=== PATIENT | female | born 1975 | race Caucasian/White ===

== ENCOUNTER 2021-02-08 14:36 | Outpatient (RCR) | payer BC, SELFPAY ==
--- NOTE | 2021-02-08 15:28 | OTOPEVAL ---
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 She has no trace motion at the DIP. She has stiffness and pain from the immobility. Issued passive ROM HEP to help stretch the tight structures, but had an honest discussion about her therapy prognosis. She verbalized good understanding and states that she would like to continue to complete these exercises on her own and does not wish to follow up with therapy at this time. Thank you for referring Lily Hassan to [facility] [place] Please review, sign, date and return this D/C Summary SIMBA. I agree with and certify that the following plan of care is medically necessary. Referring Physician Date Referring Provider: Olman Gross MD *OT Outpatient Evaluation Start: 02/08/21 14:43 Therapy Assessment Status Assessment Status Assessment Status Evaluation Outpatient Past Medical History Past Medical History No Past Medical/Surgical History Patient/Family Denies Significant Past Medical/ Surgical History Evaluation Information Problem Diagnosis Chronic FDP laceration left digit 2 Onset 08/2020 Subjective Information Patient initially injured her Query Text:As Reported By Patient/ finger when it got squished Family between a hitch and a boat. Urgent care x-rays were negative for a fracture and she was sutured up and sent home. Now, months later, she has limited functional flexion at the DIP joint of the finger. Functionally she reports difficulties with the left hand to open a soda bottle, type, and do buttons. 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 She typically just keeps the index finger extended and avoids using it. 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
== END 2021-02-09 15:41 | disposition home or self-care (01) ==
LOC: ANHOT 14:36
PROVIDERS: PCP Family Medicine; Visit Provider Plastic Surgery
DX: M20.002 Unspecified deformity of left finger(s) (principal)
CPT/HCPCS: 97110; 97165

== ENCOUNTER 2022-01-16 12:03 | Emergency (ER) | payer BC, SELFPAY ==
[2022-01-16 12:16] VITALS: BP 136/73; PULSE 83; RESP 16; TEMP 36.6; O2SAT 99
--- NOTE | 2022-01-16 12:17 | ED.FEMALEGU ---
HPI - Female Genitourinary General Chief complaint: Urogenital-Female Stated complaint: uti Time Seen by Provider: 01/16/22 12:17 Source: patient and RN notes reviewed Mode of arrival: ambulatory Limitations: no limitations History of Present Illness HPI Narrative: 46-year-old female presented for complaint of urinary frequency, burning with urination and some blood in the urine over the last week. Denies significant history of UTIs, but states the last one was about 4 months ago. She is not taking any cupo-zyc-cuwdagg medications for symptoms. She denies abdominal pain, flank pain, nausea, vomiting, vaginal discharge, fevers or chills. LMP completed 1 week ago. Related Data Home Medications Medication Instructions Recorded Confirmed vitamin C 50 mg-biotin 1,250 mcg tablet PO 06/10/19 08/31/21 chewable tablet (Fotv-Efbw-Rnful (vit C-biotin)) desvenlafaxine 100 mg 100 mg PO DAILY 08/19/20 08/31/21 tablet,extended release 24 hour pramipexole 3 mg tablet,extended 3 mg PO DAILY 08/19/20 08/31/21 release 24 hr temazepam 30 mg capsule 30 mg PO QHS 08/19/20 08/31/21 topiramate 100 mg tablet 100 mg PO DAILY 08/19/20 08/31/21 lurasidone 80 mg tablet (Latuda) 80 mg PO DAILY 06/16/21 08/31/21 propranolol 120 mg capsule,24 120 mg PO DAILY 08/23/21 08/31/21 hr,extended release Allergies Allergy/AdvReac Type Severity Reaction Status Date / Time Cephalosporins Allergy Mild Unknown Verified 01/16/22 12:05 cefprozil Allergy Unknown Unknown Verified 01/16/22 12:05 Review of Systems Review of Systems: CONSTITUTIONAL: Denies body aches, fever, chills, or sweats. CARDIOVASCULAR: Denies chest pain, palpitations, or edema. RESPIRATORY: Denies cough or dyspnea. GASTROINTESTINAL: Denies abdominal pain, nausea, vomiting, or diarrhea. GENITOURINARY: Reports dysuria, frequency, urgency, hematuria SKIN: Denies rash, itching, or wounds. MUSCULOSKELETAL: Denies back pain or myalgia. [facility] Past Medical History Medical History Anxiety At risk for side effect of medication Bipolar depression Constipation Dyslipidemia Essential (primary) hypertension Headache, migraine Hemorrhoids High cholesterol Insomnia Screening mammogram, encounter for Vitamin D deficiency Surgical History Surgical History History of appendectomy History of augmentation of both breasts 2019 History of endometrial ablation (~2010) Hx of cosmetic plastic surgery (05/11/18) 2019 - liposuction abdomen, inner thighs, hips Hx of dilation and curettage (09/24/10) hscope d&c--menorrhagia--benign Family History Family History Mother Heart disease Hypertension Alzheimer's disease Other Breast cancer paternal aunt Father Alzheimer's disease Alcoholism Other Depression Family history of coronary artery disease Family history of dementia Social History Social History Smoking status: Never smoker Second hand tobacco smoke exposure: No Alcohol intake: current Alcohol use details: consumes 2 beers rarely weekends Substance use: never Substance use type: does not use Additional living arrangements comments: Additional occupation/education comments: RN Gender identity (if verbalized by the patient): Female Sexual Orientation (if Verbalized by the Patient): Straight or Heterosexual Comments At time of signature, I have reviewed and agree with nursing past medical, surgical, social and family history unless otherwise noted. Please see nursing chart for further information. There is no relevant family history pertinent to the presenting complaint Exam Narrative: GENERAL: Well-appearing ENT: Mucous membranes pink and moist. NECK: Normal AROM. Supple. CHEST: No respirator
== END 2022-01-16 12:34 | disposition home or self-care (01) ==
PROVIDERS: Emergency Provider Nurse Practitioner Family; PCP Family Medicine
DX: N39.0 Urinary tract infection, site not specified (principal); E78.5 Hyperlipidemia, unspecified; I10 Essential (primary) hypertension; E55.9 Vitamin D deficiency, unspecified; F31.9 Bipolar disorder, unspecified; G47.00 Insomnia, unspecified
CPT/HCPCS: 81003; 87077; 87086; 87088; 99213; G0463

== ENCOUNTER 2022-07-05 16:07 | Outpatient (CLI) | payer BC, SELFPAY ==
--- NOTE | ~2022-07-05 | XR_ITS ---
XR lumbar spine 2-3V 07/05/2022 16:21 Indication: Low back pain Procedure: 3 views lumbar spine Comparison: No prior studies for comparison. Findings: Mild dextrocurvature of the lumbar spine. Vertebral body heights are maintained. No fractur e or traumatic malalignment. Pedicles are intact. Sacral foramen are symmetric.Vertebral body heights are maintained. Pedicles intact. Sacral foramen are symmetric. Impression: 1: Mild dextroscoliosis. Reviewed, dictated and finalized at location A. Impression: 1: Mild dextroscoliosis.
--- NOTE | ~2022-07-05 | XR_ITS ---
EXAMINATION: XR hip LT min 3V w AP pelvis INDICATION: Left hip pain TECHNIQUE: AP view of the pelvis and two views of the left hip are obtained. COMPARISON: None available FINDINGS: Bone alignment is normal. There is no fracture. There is mild osteoarthritis of the hips. T he soft tissues are unremarkable. IMPRESSION: 1. Mild osteoarthritis of the hips. Reviewed, dictated and finalized at location F.
== END 2022-07-05 16:08 ==
PROVIDERS: PCP Family Medicine; Visit Provider Nurse Practitioner
DX: M54.50 Low back pain, unspecified (principal); M16.0 Bilateral primary osteoarthritis of hip
CPT/HCPCS: 72100; 73502

== ENCOUNTER 2022-08-11 15:20 | Outpatient (CLI) | payer BC, SELFPAY ==
--- NOTE | ~2022-08-11 | MR_ITS ---
MRI of the left hip Clinical history: Pain Technique: Coronal T1-weighted, T2-weighted, and proton-density fat-sat images, and axial T1-weighted and proton-density fat-sat images were acquired through the pelvis. Coronal T2-weighted images and c oronal, axial, and sagittal proton-density fat-sat images were acquired through the left hip. Findings: There is no fracture, avascular necrosis, or transient osteoporosis of either hip. Bone mar row signals in the proximal femora and visualized pelvic bones are unremarkable. Bilateral hip joints are intact, without significant degenerative change. No joint effusion evident. No definite left sarah tabular labral tear identified. Visualized musculature about the pelvis and left hip is unremarkable. No muscle atrophy or edema. Vis ualized tendons are intact. No soft tissue mass or fluid collection. No evidence for bursitis. IMPRESSION: No significant abnormality seen. Reviewed, dictated and finalized at [facility].
== END 2022-08-11 15:21 ==
LOC: GOSHIMG 15:21
PROVIDERS: PCP Family Medicine; Visit Provider Orthopaedic Surgery
DX: M25.552 Pain in left hip (principal)
CPT/HCPCS: 73721

== ENCOUNTER 2022-09-02 15:47 | Observation (INO) | payer BC, SELFPAY ==
[2022-09-02] VITALS (9 sets, daily range): BP systolic 92–101; BP diastolic 51–65; PULSE 55–75; RESP 15–19; TEMP 36.2–36.8; O2SAT 95–100; BMI 30.2
--- NOTE | 2022-09-02 15:57 | ECG_ITS ---
Measurements Intervals [place] Rate: 63 P: 29 MI: 151 QRS: 5 QRSD: 101 T: 4 QT: 394 QTc: 405 Interpretive Statements SINUS RHYTHM NORMAL ECG NO PREVIOUS ECG AVAILABLE FOR COMPARISON Electronically Signed On 09-02-2022 16:30:10 CDT by Dc Javed D.O.
--- NOTE | 2022-09-02 16:08 | PC.NURSE ---
1600 contacted [place] poison control, spoke with Nani HITCHCOCK. toxic dose for pt is 82mg, peak at 1-1.5 hours with a half life of 8 hours. recommends blood work, EKG, and cardiac monitoring. will follow up.
--- NOTE | 2022-09-02 16:41 | ED.OVERDOSE ---
HPI - Overdose General Chief Complaint: Overdose <Patrizia Adam PA-C - Last Filed: 09/02/22 19:28> Stated Complaint: Overdose <Patrizia Adam PA-C - Last Filed: 09/02/22 19:28> Time Seen by Provider: 09/02/22 16:00 <Patrizia Adam PA-C - Last Filed: 09/02/22 19:28> Source: patient and family <NEIL Richey Last Filed: 09/02/22 19:28> Mode of arrival: EMS <NEIL Richey Last Filed: 09/02/22 19:28> Limitations: no limitations <Patrizia Adam PA-C - Last Filed: 09/02/22 19:28> History of Present Illness HPI Narrative: Patient is a 47-year-old female who presents the ED via EMS with report of intentional overdose. Patient reports she has a history of bipolar disorder and has had a really hard time lately. She lost her father a few months ago. She has also been dealing with left hip pain which has interfered with her workout schedule, which she reports is her release. Patient reached a point today that she wanted to sleep and not wake up. She intentionally took 21 temazepam pills with 2 hard seltzers around 8:30 AM this morning in a suicide attempt. She taking any other medications. Her found her later on and called police. He states she was initially very obtunded, but responded to a sternal rub and woke up. Patient reports she attempted to harm herself 2 months ago by taking pills with alcohol again. was unaware of this attempt. He is unsure if this actually occurred. Patient denies any pain, OLIVERA, CP, SOB, vision changes, dizziness, nausea, vomiting currently. Patient has never been psychiatrically hospitalized previously. She does see a psychiatrist, Dr. Aixa Padilla. <Patrizia Adam PA-C - Last Filed: 09/02/22 19:28> Related Data Home Medications: Home Medications Medication Instructions Recorded Confirmed desvenlafaxine 100 mg 100 mg PO DAILY 08/19/20 08/08/22 tablet,extended release 24 hour pramipexole 3 mg tablet,extended 3 mg PO DAILY 08/19/20 08/08/22 release 24 hr temazepam 30 mg capsule 30 mg PO QHS 08/19/20 08/08/22 topiramate 100 mg tablet 100 mg PO DAILY 08/19/20 08/08/22 lurasidone 80 mg tablet (Latuda) 80 mg PO DAILY 06/16/21 08/08/22 propranolol 120 mg capsule,24 120 mg PO DAILY 08/23/21 08/08/22 hr,extended release <Patrizia Adam PA-C - Last Filed: 09/02/22 19:28> Allergies/Adverse Reactions: Allergies Allergy/AdvReac Type Severity Reaction Status Date / Time Cephalosporins Allergy Mild Unknown Verified 08/08/22 14:56 cefprozil Allergy Unknown Unknown Verified 08/08/22 14:56 <Patrizia Adam PA-C - Last Filed: 09/02/22 19:28> Review of Systems Review of Systems: CONSTITUTIONAL: Denies fever, chills, or sweats. CARDIOVASCULAR: Denies chest pain. RESPIRATORY: Denies dyspnea. GASTROINTESTINAL: Denies abdominal pain, nausea, vomiting, or diarrhea. GENITOURINARY: Denies dysuria or hematuria. NEUROLOGIC: Denies headache, numbness, or weakness. PSYCHIATRIC: See HPI. <Patrizia Adam PA-C - Last Filed: 09/02/22 19:28> All systems reviewed & are unremarkable except as noted in HPI and below <Patrizia Adam PA-C - Last Filed: 09/02/22 19:28> [facility] Past Medical History Medical History: Medical History Anxiety At risk for side effect of medication Bipolar depression Constipation Dyslipidemia Essential (primary) hypertension Headache, migraine Hemorrhoids High cholesterol Insomnia Screening mammogram, encounter for Vitamin D deficiency <Patrizia Adam PA-C - Last Filed: 09/02/22 19:28> Surgical History Surgical History: Surgical History History of appendectomy History of augmentation of both breasts 2019 History of endometrial ablation (~2010) Hx of cosmetic plastic surgery (05/11/18)
[2022-09-02] MEDS: SODIUM CHLORIDE 0.9% IV 1,000 ML 999 ML IV CONT ×3 (16:51→18:38)
[2022-09-02 16:54] LABS: Basophils Percent Auto 0.3 % (0.2-1.2); Eosinophils Absolute Auto 0.1 K/mm3 (0-0.3); Eosinophils Percent Auto 1.7 % (0-4.4); Hematocrit 38.9 % (37.0-47.0); Hemoglobin 13.1 g/dL (12.0-15.0); Immature Granulocyte Absolute 0.03 K/mm3 (0.00-0.031); Immature Granulocyte Percent A 0.4 % (0-0.5); Lymphocytes Absolute Auto 2.68 K/mm3 (0.9-3.2); Lymphocytes Percent Auto 37.5 % (18.3-44.2); Mean Corpuscular HGB Conc 33.7 g/dl (32-36); Mean Corpuscular Hemoglobin 32.8 pg (26-34); Mean Corpuscular Volume 97.5 fl (80-100); Mean Platelet Volume 9.6 fl (7.4-10.4); Monocytes Absolute Auto 0.7 K/mm3 (0.1-0.6); Monocytes Percent Auto 9.4 % (2.6-8.5); Neutrophils Absolute Auto 3.6 K/mm3 (1.3-6.7); Neutrophils Percent Auto 50.7 % (45.5-73.1); Platelet Count Result 309 k/mm3 (150-375); Red Blood Count 3.99 M/mm3 (4.2-5.4); Red Cell Distribution Width 13.5 % (11.5-14.5); White Blood Count 7.2 K/mm3 (4.5-10.0)
[2022-09-02 16:55] LABS: Appearance Urine Clear (Clear); Bilirubin Urine Negative (Negative); Blood Urine Negative (Negative); Color Urine Yellow (Yellow); Glucose Urine UA Negative (Negative); Ketones Urine Negative (Negative); Leukocyte Esterase Ur Negative LEU/UL (Negative); Nitrate Urine Negative (Negative); Protein Urine Negative (Negative); Specific Grav Ur 1.014 (1.001-1.035); Urobilinogen Urine 0.2 mg/dL (<2.0)
[2022-09-02 16:58] LABS: Acetaminophen < 10 ug/mL (10-30); Ethanol < 10 mg/dL (<10); Salicylate < 1.0 mg/dL (2-20)
[2022-09-02 16:59] LABS: Alanine Aminotransferase 30 U/L (6-35); Albumin Level 4.3 g/dL (3.5-5.1); Alkaline Phosphatase 76 U/L (38-126); Anion Gap 8 mmol/L (8-16); Aspartate Amino Transferase 26 U/L (14-36); Bilirubin,Total 0.5 mg/dL (0.2-1.3); Blood Urea Nitrogen 14 mg/dL (7-17); Calcium 8.6 mg/dL (8.4-10.2); Carbon Dioxide 26 mmol/L (22-30); Chloride 104 mmol/L (98-107); Estimated CRCL calculation 78 ml/min; Estimated Glomerular Filt Rate > 60; Glucose 82 mg/dL (65-110); Potassium 3.8 mmol/L (3.4-5.0); Sodium 138 mmol/L (137-145)
[2022-09-02 17:10] LABS: Add Urine Microscopic? NO
[2022-09-02 17:11] LABS: Amphetamine Screen Urine Negative (Negative); Barbiturate Screen Urine Negative (Negative); Benzodiazepines Screen Urine Positive (Negative); Cannabinoid Screen Urine Negative (Negative); Cocaine Screen Urine Negative (Negative); Methadone Screen Urine Negative (Negative); Opiate Screen Urine Negative (Negative); Phencyclidine Screen Urine Negative (Negative)
[2022-09-02 17:30] LABS: Thyroid Stimulating Hormone 0.761 uIU/mL (0.465-4.680)
[2022-09-02 17:32] LABS: SARS-CoV-2 RNA PCR Negative (Negative)
[2022-09-02] MEDS: NALOXONE HCL 0.4 MG/ML VIAL IV PUSH (17:52)
[2022-09-02] MEDS: SODIUM CHLORIDE 0.9% IV 1,000 ML 100 ML IV CONT (20:03)
--- NOTE | 2022-09-02 20:56 | ADMGEN ---
This patient, Lily Hassan, was admitted to Intensive Care Unit-3. Patient/family oriented to hospital policies and general routines including ID bracelet, bed and alarms, visiting hours, pain management, procedures, bathroom and other care routines, personal items, smoking policy, room service/diet, and visiting hours. Information on how to activate the Rapid Response Team has been discussed. Patient/Family are encouraged to report perceived risks to care and to ask questions if they do not understand what they are told or what they should do.
--- NOTE | 2022-09-02 22:34 | PM.IMHP ---
H&P: HPI History of Present Illness Date/Time: 09/02/22 22:34 Chief Complaint: Overdose Narrative: this is a 47-year-old female patient with a history of depression. The patient does see a psychiatrist and a sociology is. The patient stated that she has thought about suicide on multiple occasions but never followed through with that. She has a history of bipolar disorder and has been having a lot of emotional distress recently. She did not go into detail but she lost her father a few months ago. She also has been dealing with some left hip pain which is interfered with her work up schedule. Working out helps to decrease her depression. The patient stated that she was at her breaking point today and she just wanted to take medication and hope that that she would not wake up. The patient intentionally overdosed on 21 temazepam pills and took 2 seltzer drinks at 8:30 a.m. this morning in a suicide attempt. The patient stated that she wrote suicide notes to her kids and her . The patient also stated that she attempted to her herself approximately 2 months ago by taking pills with alcohol. Her speech is slightly slurred but she is answering questions without difficulty. Patient's toxicology screen was positive for benzos. She was negative for COVID. The patient is being admitted to ICU for suicide precautions. The scout leaser has been consulted. The patient is being admitted for observation status on the date of service of 09/02/2022. Review of Systems Review of Systems: All systems reviewed & are unremarkable except as noted in HPI and below Constitutional: Constitutional: Reports as per HPI and Reports no additional constitutional complaints Eyes: Eyes: Reports as per HPI and Reports no additional eye complaints ENT: Reports system reviewed and no additional complaints, except as documented and Reports Normal hearing present Cardiovascular: Cardiovascular: Reports no additional cardiovascular complaints Respiratory: Respiratory: Reports no additional respiratory complaints and Reports no additional respiratory complaints Gastrointestinal: Gastrointestinal: Reports as per HPI and Reports no additional gastrointestinal complaints Musculoskeletal: Musculoskeletal: Reports no additional musculoskeletal complaints Integumentary/Breasts: Skin/Breast: Reports system reviewed and no additional complaints, except as docu and Reports as per HPI Neurologic: Reports system reviewed and no additional complaints, except as documented, Reports as per HPI and Reports Normal hearing present Psychiatric: Psychiatric: Reports no additional psychiatric complaints and Reports as per HPI Endocrine: Endocrine: Reports no additional endocrine complaints Hematologic/Lymphatic: Hematologic/Lymphatic: Reports no additional hematologic/lymphatic complaints Allergic/Immunologic: Allergic/Immunologic: Reports no additional allergic/immunologic complaints PMFSH Past Medical History Medical History Anxiety At risk for side effect of medication Bipolar depression Constipation Dyslipidemia Essential (primary) hypertension Headache, migraine Hemorrhoids High cholesterol Insomnia Screening mammogram, encounter for Vitamin D deficiency Surgical History Surgical History History of appendectomy History of augmentation of both breasts 2019 History of endometrial ablation (~2010) Hx of cosmetic plastic surgery (05/11/18) 2019 - liposuction abdomen, inner thighs, hips Hx of dilation and curettage (09/24/10) hscope d&c--menorrhagia--benign Family History Family History Mother Heart disease Hypertension Alzheimer's disease Other Breast cancer paternal aunt Father Alzheimer's disease Alcoholism Other Depression Family history of coronary artery disease F
--- NOTE | 2022-09-02 22:59 | PC.NURSE ---
Spoke with Nani from poison control. Updated on patient condition and most recent vitals. Nani stated at this point, medication has peaked and patient condition should not worsen. Per Nani, poison control will sign off at this time.
[2022-09-03] VITALS: BP 93/51; PULSE 71; RESP 24; TEMP 36.5; O2SAT 100
[2022-09-03 02:00] VITALS: PULSE 90
[2022-09-03 04:00] VITALS: BP 98/60; PULSE 92; RESP 24; TEMP 36.7; O2SAT 99
[2022-09-03 04:27] LABS: Basophils Percent Auto 0.3 % (0.2-1.2); Eosinophils Absolute Auto 0.1 K/mm3 (0-0.3); Eosinophils Percent Auto 1.6 % (0-4.4); Hematocrit 32.5 % (37.0-47.0); Hemoglobin 10.7 g/dL (12.0-15.0); Immature Granulocyte Absolute 0.02 K/mm3 (0.00-0.031); Immature Granulocyte Percent A 0.3 % (0-0.5); Lymphocytes Absolute Auto 2.31 K/mm3 (0.9-3.2); Mean Corpuscular HGB Conc 32.9 g/dl (32-36); Mean Corpuscular Hemoglobin 32.6 pg (26-34); Mean Corpuscular Volume 99.1 fl (80-100); Mean Platelet Volume 9.5 fl (7.4-10.4); Monocytes Absolute Auto 0.5 K/mm3 (0.1-0.6); Monocytes Percent Auto 7.7 % (2.6-8.5); Neutrophils Percent Auto 57.1 % (45.5-73.1); Platelet Count Result 267 k/mm3 (150-375); Red Blood Count 3.28 M/mm3 (4.2-5.4); Red Cell Distribution Width 13.5 % (11.5-14.5)
[2022-09-03 04:39] LABS: Alanine Aminotransferase 24 U/L (6-35); Albumin Level 3.2 g/dL (3.5-5.1); Alkaline Phosphatase 54 U/L (38-126); Anion Gap 4 mmol/L (8-16); Aspartate Amino Transferase 28 U/L (14-36); Bilirubin,Total 0.4 mg/dL (0.2-1.3); Blood Urea Nitrogen 13 mg/dL (7-17); Calcium 7.6 mg/dL (8.4-10.2); Carbon Dioxide 24 mmol/L (22-30); Chloride 110 mmol/L (98-107); Estimated CRCL calculation 87 ml/min; Estimated Glomerular Filt Rate > 60; Glucose 92 mg/dL (65-110); Potassium 3.6 mmol/L (3.4-5.0); Sodium 138 mmol/L (137-145)
[2022-09-03 06:00] VITALS: PULSE 75
[2022-09-03 08:00] VITALS: BP 93/57; PULSE 98; RESP 12; TEMP 37; O2SAT 95
--- NOTE | 2022-09-03 08:58 | PM.IMPN ---
Progress Note: A&P Assessment and Plan (1) Intentional benzodiazepine overdose: Qualifiers: Encounter type: initial encounter Qualified Code(s): T42.4X2A - Poisoning by benzodiazepines, intentional self-harm, initial encounter Code(s): T42.4X2A - Poisoning by benzodiazepines, intentional self-harm, initial encounter Status: Acute Assessment and Plan: Medically stable for discharge pending crisis team evaluation. (2) Essential (primary) hypertension: Code(s): I10 - Essential (primary) hypertension Status: Acute Assessment and Plan: Her blood pressure is 93/51 so it is low and her lisinopril and hydrochlorothiazide have been placed on hold (3) Anxiety: Code(s): F41.9 - Anxiety disorder, unspecified Status: Acute Assessment and Plan: The patient overdosed on clonazepam. Would discontinue all chronic benzodiazepine use (4) Bipolar depression: Code(s): F31.9 - Bipolar disorder, unspecified Status: Acute Assessment and Plan: All medications were placed on hold at admission p\ Resume antidepressants and mood stabilizers pending follow-up psychiatric evaluation Subjective Date/time seen: 09/03/22 08:58 Interval history: Follow-up visit has been overdose. Only complaint today is chronic left hip pain. This seemed to for a straighter and pressor. She usually exercises regularly including running. Any weight-bearing aggravates the left hip pain. Point pain over the left greater trochanter. Injection there did not help however injection in the left SI did help. But for only 2 days. MRI of the left hip was reportedly negative. Today has some intermittent thoughts about suicide but no intent to act on them. Tolerated her breakfast. Got up and went to bathroom on her own. Functioning independently. A little drowsy but otherwise feeling fine, except for the chronic left hip pain. Review of Systems Review of Systems: All systems reviewed & are unremarkable except as noted in HPI and below Exam Narrative: Alert. Oriented person place and time. Affect blunted. Insight judgment intact. Recent and remote memory intact. Neck without JVD. Chest clear to auscultation. Heart regular rate without audible murmurs. Abdomen bowel sounds positive soft nontender without palpable mass. Extremities without edema cyanosis or clubbing. Musculoskeletal mild tenderness to deep palpation over the left greater trochanter. FADIR and LORRAINE test negative. Straight leg raising negative. Neurologic cranial nerves intact to visual inspection. Objective Data Vital Signs Vital Signs: Vital Signs - 24 hr 09/02/22 15:46 09/02/22 15:54 09/02/22 16:16 Temperature 97.2 F L Pulse Rate 72 65 Respiratory Rate 16 16 17 Blood Pressure 99/57 L 99/52 L Pulse Oximetry 100 100 Oxygen Delivery Room Air 09/02/22 16:46 09/02/22 18:01 09/02/22 19:01 Temperature Pulse Rate 75 55 L 61 Respiratory Rate 15 16 19 Blood Pressure 95/51 L 93/51 L 101/63 Pulse Oximetry 100 100 Oxygen Delivery 09/02/22 20:00 09/02/22 21:45 09/02/22 22:00 Temperature 98.2 F Pulse Rate 65 71 74 Respiratory Rate 18 19 Blood Pressure 93/56 L 92/65 L Pulse Oximetry 100 95 Oxygen Delivery 09/03/22 00:00 09/03/22 00:00 09/03/22 02:00 Temperature 97.7 F Pulse Rate 71 71 90 Respiratory Rate 24 H Blood Pressure 93/51 L Pulse Oximetry 100 Oxygen Delivery 09/03/22 04:00 09/03/22 04:00 09/03/22 06:00 Temperature 98.1 F Pulse Rate 92 92 75 Respiratory Rate 24 H Blood Pressure 98/60 L Pulse Oximetry 99 Oxygen Delivery 09/03/22 08:00 09/03/22 08:00 Temperature 98.6 F Pulse Rate 98 98 Respiratory Rate 12 Blood Pressure 93/57 L Pulse Oximetry 95 Oxygen Delivery Intake/Output Intake/Output: Intake & Output 08/31/22 09/01/22 09/02/22 09/03/22 23:59 23:59 23:59 23:59 Intake Total 3000 720 Output Tot
[2022-09-03] MEDS: DESVENLAFAXINE SUCCINATE 50 MG TAB.ER.24H 100 MG PO (09:39)
[2022-09-03] MEDS: SODIUM CHLORIDE 0.9% IV 1,000 ML 100 ML IV CONT (09:49)
--- NOTE | 2022-09-03 11:49 | PC.NURSE ---
Crisis here to see patient.
--- NOTE | 2022-09-03 12:18 | PM.DS ---
DS: Admitting Diagnosis Discharge Date 09/03/2022 Admitting Diagnosis benzodiazepine overdose DS: Discharge Diagnosis Discharge Diagnosis (1) Intentional benzodiazepine overdose: Qualifiers: Encounter type: initial encounter Qualified Code(s): T42.4X2A - Poisoning by benzodiazepines, intentional self-harm, initial encounter Code(s): T42.4X2A - Poisoning by benzodiazepines, intentional self-harm, initial encounter Status: Acute Assessment and Plan: Medically stable for discharge with safety plan and psychiatric f/u in one week. (2) Essential (primary) hypertension: Code(s): I10 - Essential (primary) hypertension Status: Acute Assessment and Plan: Her blood pressure is 93/51 so it is low and her lisinopril and hydrochlorothiazide have been placed on hold Continue to hold and monitor home bp. F/u with PCP re: BP meds (3) Anxiety: Code(s): F41.9 - Anxiety disorder, unspecified Status: Acute Assessment and Plan: The patient overdosed on clonazepam. Would discontinue all chronic benzodiazepine use (4) Bipolar depression: Code(s): F31.9 - Bipolar disorder, unspecified Status: Acute Assessment and Plan: All medications were placed on hold at admission Resume antidepressants and mood stabilizers at discharge DS: Summary Hospital Course Hospital Course: Admitted with intentional benzodiazepine overdose. Was drowsy but otherwise had no adverse effects. Was distraught with her bipolar disorder and dealing with chronic hip pain. Not able to exercise and be as active as she wished. She had suicidal ideation but no intent or plan and had a safety plan on the day of discharge. She was seen by crisis team. Her was to dispense her medications. She was to avoid benzodiazepines. She was to follow up with her psychiatrist in 1 week and with her primary care physician in 1 week. By day of discharge she was ambulatory tolerating her diet and alert oriented person place and. Time Spent with Patient Time attestation: Total time spent providing and/or coordinating discharge services: Exam Narrative: Alert. Oriented person place and time. Affect blunted. Insight judgment intact. Recent and remote memory intact. Neck without JVD. Chest clear to auscultation. Heart regular rate without audible murmurs. Abdomen bowel sounds positive soft nontender without palpable mass. Extremities without edema cyanosis or clubbing. Musculoskeletal mild tenderness to deep palpation over the left greater trochanter. FADIR and LORRAINE test negative. Straight leg raising negative. Neurologic cranial nerves intact to visual inspection. DS: Data Data Completed and Pending Labs on day of discharge: Labs from last 24 hours 09/03/22 09/02/22 04:19 16:38 WBC 7.0 7.2 RBC 3.28 L 3.99 L Hgb 10.7 L 13.1 Hct 32.5 L 38.9 MCV 99.1 97.5 MCH 32.6 32.8 MCHC 32.9 33.7 RDW 13.5 13.5 Plt Count 267 309 MPV 9.5 9.6 Immature Gran % (Auto) 0.3 0.4 Neut % (Auto) 57.1 50.7 Lymph % (Auto) 33.0 37.5 Bullitt % (Auto) 7.7 9.4 H Eos % (Auto) 1.6 1.7 Baso % (Auto) 0.3 0.3 Lymph # (Auto) 2.31 2.68 Bullitt # (Auto) 0.5 0.7 H Eos # (Auto) 0.1 0.1 Baso # (Auto) 0.0 0.0 Abs Immat Gran (auto) 0.02 0.03 Absolute Neuts (auto) 4.0 3.6 Absolute Nucleated RBC 0.0 0.0 Nucleated RBC % 0.0 0.0 Sodium 138 138 Potassium 3.6 3.8 Chloride 110 H 104 Carbon Dioxide 24 26 Anion Gap 4 L 8 BUN 13 14 Creatinine 0.70 0.80 Estim Creat Clear Calc 87 78 Estimated GFR > 60 > 60 Glucose 92 82 Calcium 7.6 L 8.6 Magnesium 2.0 Total Bilirubin 0.4 0.5 AST 28 26 ALT 24 30 Alkaline Phosphatase 54 76 Total Protein 6.0 L 7.0 Albumin 3.2 L 4.3 TSH 0.761 TSH (Reflex) 1.290 Urine Color Yellow Urine Appearance Clear Urine pH 7.0 Ur Specific Staley 1.014 Urine Protein Negative Urine Glucose (
--- NOTE | 2022-09-03 12:41 | PC.NURSE ---
Per crisis will send her home on a safety contract. They talked with Dr. Ahn who will discharge patient.
== END 2022-09-03 13:00 | disposition home or self-care (01) ==
LOC: ANHED 19:45 → ANHICU 20:27
PROVIDERS: Emergency Medicine; Nurse Practitioner; Admitting Provider Hospitalist; Emergency Provider Physician Assistant; PCP Family Medicine; Visit Provider Internal Medicine
DX: T42.4X2A Poisoning by benzodiazepines, intentional self-harm, initial encounter (principal); Y92.009 Unspecified place in unspecified non-institutional (private) residence as the place of occurrence of the external cause; F10.90 Alcohol use, unspecified, uncomplicated; Y90.0 Blood alcohol level of less than 20 mg/100 ml; Z20.822 Contact with and (suspected) exposure to COVID-19; F31.9 Bipolar disorder, unspecified; F41.9 Anxiety disorder, unspecified; M25.552 Pain in left hip; E78.5 Hyperlipidemia, unspecified; I10 Essential (primary) hypertension; G47.00 Insomnia, unspecified; E55.9 Vitamin D deficiency, unspecified; Z82.49 Family history of ischemic heart disease and other diseases of the circulatory system; E66.9 Obesity, unspecified; Z68.30 Body mass index [BMI] 30.0-30.9, adult; Z79.899 Other long term (current) drug therapy
CPT/HCPCS: 36415; 80053; 80307; 81003; 81025; 83735; 84443; 85025; 87635; 93005; 96361; 96374; 99285; A9270; G0378; J2310; J7030

== ENCOUNTER → 2022-11-19 10:48 | Outpatient (CLI) | payer BC, SELFPAY ==
--- NOTE | ~2022-11-19 | MM_ITS ---
EXAMINATION: MM screening [facility] BI w nancy HISTORY: Screening TECHNIQUE: Craniocaudal and mediolateral oblique 3-D tomosynthesis images were obtained and synthetic 2-D images were generated. CAD analysis was submitted and interpreted. COMPARISON: Comparison to multiple prior studies sequentially, with oldest reviewed study dated 06/02. BREAST PARENCHYMAL COMPOSITION: There are scattered areas of fibroglandular density. FINDINGS: There is a focal asymmetry in the subareolar location the right breast on CC view. The left breast is stable without evidence for malignancy. IMPRESSION: 1. New focal right breast asymmetry on CC view in the subareolar location. 2. Additional mammographic views and possible breast ultrasound are recommended. BI-RADS Category 0: Incomplete: Needs additional imaging evaluation. Reviewed, dictated and finalized at location A. IMPRESSION: 1. New focal right breast asymmetry on CC view in the subareolar location. 2. Additional mammographic views and possible breast ultrasound are recommended . BI-RADS Category 0: Incomplete: Needs additional imaging evaluation.
== END ==
PROVIDERS: PCP Family Medicine; Visit Provider Obstetrics & Gynecology
DX: Z12.31 Encounter for screening mammogram for malignant neoplasm of breast (principal); N64.89 Other specified disorders of breast
CPT/HCPCS: 77063; 77067

== ENCOUNTER 2022-12-19 07:53 | Outpatient (CLI) | payer BC, SELFPAY ==
--- NOTE | ~2022-12-19 | MMUS_ITS ---
EXAMINATION: MM diagnostic [facility] RT w nancy, US breast RT limited HISTORY: New focal right breast asymmetry overlying subareolar area on screening mammogram TECHNIQUE: Additional 3-D tomosynthesis images of the right breast were performed and synthetic 2-D i mages were generated. CAD analysis was submitted and interpreted. High resolution targeted subareolar right breast ultrasound was performed. COMPARISON: 11/20/2019 bilateral screening mammogram FINDINGS: MAMMOGRAPHIC FINDINGS: An approximately 6 mm circumscribed opacity is again noted in the superomedial subareolar area approx imately. ULTRASOUND: 1:00 subareolar area: Septated cyst measuring approximately 3.7 x 3.6 x 5.5 mm. No internal vasculari ty or suspicious shadowing. IMPRESSION: 1. Benign 5 x 5 mm cyst at 1:00 subareolar area 2. Routine annual mammographic screening is recommended BI-RADS Category 2: Benign finding(s). Reviewed, dictated and finalized at location A. IMPRESSION: 1. Benign 5 x 5 mm cyst at 1:00 subareolar area 2. Routine annual mammographic screening is recommended BI-RADS Category 2: Benign finding(s).
== END 2022-12-19 07:54 ==
LOC: MICIMG 07:54
PROVIDERS: PCP Family Medicine; Visit Provider Obstetrics & Gynecology
DX: R92.8 Other abnormal and inconclusive findings on diagnostic imaging of breast (principal)
CPT/HCPCS: 76642; 77061; 77065; G0279

== ENCOUNTER 2024-02-15 15:00 | Outpatient (CLI) | payer BC, SELFPAY ==
--- NOTE | ~2024-02-15 | MM_ITS ---
EXAMINATION: MM screening [facility] BI w nancy HISTORY: Screening TECHNIQUE: Craniocaudal and mediolateral oblique 3-D tomosynthesis images were obtained and synthetic 2-D images were generated. CAD analysis was submitted and interpreted. COMPARISON: Comparison to multiple prior studies sequentially, with oldest reviewed study dated 06/02. BREAST PARENCHYMAL COMPOSITION: Not dense: There are scattered areas of fibroglandular density. FINDINGS: There is no evidence of suspicious mass, calcification, or architectural distortion to sugg est malignancy in either breast. There has been no suspicious interval change. IMPRESSION: 1. No mammographic evidence of malignancy. 2. Recommend routine screening mammography in one year. BI-RADS Category 1: Negative Reviewed, dictated and finalized at location B. [employer] L[employer]ATOR
== END 2024-02-15 15:01 | disposition home or self-care (01) ==
LOC: MICIMG 15:00
PROVIDERS: PCP Family Medicine; Visit Provider Obstetrics & Gynecology
DX: Z12.31 Encounter for screening mammogram for malignant neoplasm of breast (principal)
CPT/HCPCS: 77063; 77067

== ENCOUNTER 2025-02-24 07:22 | Outpatient (CLI) | payer BC, SELFPAY ==
--- NOTE | ~2025-02-24 | MM_ITS ---
EXAMINATION: MM screening [facility] BI w nancy HISTORY: Screening TECHNIQUE: Craniocaudal and mediolateral oblique 3-D tomosynthesis images were obtained and synthetic 2-D images were generated. CAD analysis was submitted and interpreted. COMPARISON: Comparison to multiple prior studies sequentially, with oldest reviewed study dated 06/02/2017. BREAST PARENCHYMAL COMPOSITION: There are scattered areas of fibroglandular density. FINDINGS: There is no evidence of suspicious mass, calcification, or architectural distortion to suggest malignancy in either breast. Scattered benign-appearing calcifications are present. IMPRESSION: 1. No mammographic evidence of malignancy. 2. Recommend routine screening mammography in one year. BI-RADS Category 2: Benign finding(s). Reviewed, dictated and finalized at location B. [employer]
== END 2025-02-24 07:23 | disposition home or self-care (01) ==
LOC: MICIMG 07:23
PROVIDERS: PCP Family Medicine; Visit Provider Obstetrics & Gynecology
DX: Z12.31 Encounter for screening mammogram for malignant neoplasm of breast (principal)
CPT/HCPCS: 77063; 77067